=== PATIENT | female | born 1965 | race Caucasian/White ===

== ENCOUNTER 2021-09-08 13:08 | Outpatient (CLI) | payer OTHER | END 2021-09-08 13:26 | disposition home or self-care (01) | LOC: MAMO-SONO 13:08 | PROVIDERS: ATTEND Obstetrics & Gynecology | DX: N60.11 Diffuse cystic mastopathy of right breast (principal); N60.12 Diffuse cystic mastopathy of left breast; N64.89 Other specified disorders of breast; Z12.31 Encounter for screening mammogram for malignant neoplasm of breast ==